=== PATIENT | male | born 1950 | race Caucasian/White ===

== ENCOUNTER 2021-09-17 09:27 | Day surgery (SDC) | payer MEDICARE ==
[2021-09-17] MEDS ORDERED: Lidocaine 1% PF 5 ML VIAL ONE (10:30)
[2021-09-17] MEDS ORDERED: Fentanyl 100 MCG/2 ML VIAL ONE (10:30)
[2021-09-17] MEDS ORDERED: Midazolam HCl 5 mg/5 ml Vial ONE (10:31)
[2021-09-17 11:54] VITALS: BP 120/69; TEMP 98.4
== END 2021-09-17 12:45 | disposition home or self-care (01) ==
LOC: CSHULT 09:27
PROVIDERS: ATTEND Internal Medicine Nephrology
PROC: 0TB03ZX Excision of Right Kidney, Percutaneous Approach, Diagnostic (ICD-10-PCS; principal; 2021-09-17)
DX: I12.9 Hypertensive chronic kidney disease with stage 1 through stage 4 chronic kidney disease, or unspecified chronic kidney disease (principal); N18.30 Chronic kidney disease, stage 3 unspecified; D63.1 Anemia in chronic kidney disease; K21.9 Gastro-esophageal reflux disease without esophagitis; E78.5 Hyperlipidemia, unspecified; Z85.72 Personal history of non-Hodgkin lymphomas; Z79.82 Long term (current) use of aspirin; Z79.899 Other long term (current) drug therapy
CPT/HCPCS: 50200; 88305; 88313; 88329; 88346; 88348; 88350; J2250; J3010

== ENCOUNTER 2021-11-08 13:57 | Outpatient (CLI) | payer MEDICARE ==
[~2021-11-08 13:57] MED LIST: Iopamidol 300 61% 100 ML VIAL FS ONE
== END 2021-11-08 13:58 | disposition home or self-care (01) ==
LOC: CSHCT 13:57
PROVIDERS: ATTEND Physician Assistant Medical
DX: R10.13 Epigastric pain (principal); J90 Pleural effusion, not elsewhere classified; Z90.49 Acquired absence of other specified parts of digestive tract; K57.30 Diverticulosis of large intestine without perforation or abscess without bleeding; K59.00 Constipation, unspecified; M48.061 Spinal stenosis, lumbar region without neurogenic claudication; M25.78 Osteophyte, vertebrae
CPT/HCPCS: 74160; 82565; Q9967